=== PATIENT | female | born 1965 | race Caucasian/White ===

== ENCOUNTER 2017-06-02 13:02 | Emergency (ER) | payer OTHER ==
[~2017-06-02 13:02] MED LIST: ASPIRIN 325MG325 MG PO; ASPIRIN CHEWABL81 MG PO; CARBAMAZEPINE200 MG PO; CARTIA XT120 MG PO; CO Q-10100 MG PO; COPAXONE40 MG/1 ML SQ; FUROSEMIDE20 MG PO; HYDROXYZINE HCL25 MG PO; IBUPROFEN800 MG PO; KEFLEX500 MG PO; PERCOCET 10-321 EACH PO; PRAVASTATIN SOD20 MG PO; VITAMIN C 500500 MG PO; WELLBUTRIN 100100 MG PO; ZESTRIL2.5 MG PO; ZOFRAN4 MG PO
[2017-06-02 14:30] LABS: HEMOGLOBIN 12.6 gm/dl (12.3-15.3); RED BLOOD COUNT 4.06 M/UL (4.00-5.10); WHITE BLOOD COUNT 6.6 K/UL (4.5-11.0)
[2017-06-02 14:52] LABS: BUN/CREATININE RATIO 11 (0-10)
== END 2017-06-02 18:44 | disposition home or self-care (01) ==
LOC: ER1 13:02
PROVIDERS: Physician Assistant
DX: R00.2 Palpitations (principal); R00.0 Tachycardia, unspecified; R06.02 Shortness of breath; R53.1 Weakness; I25.2 Old myocardial infarction; I10 Essential (primary) hypertension; E78.5 Hyperlipidemia, unspecified; F17.200 Nicotine dependence, unspecified, uncomplicated; Z79.82 Long term (current) use of aspirin; Z79.899 Other long term (current) drug therapy
CPT/HCPCS: 36415; 71010; 80053; 82550; 82553; 83874; 84443; 84484; 85025; 93005; 99285

== ENCOUNTER → 2020-10-20 | Outpatient (CLI) | payer MEDICARE, OTHER ==
[~2020-10-20] MED LIST changes: +AMITIZA24 MCG PO; +AUBAGIO14 MG PO; +CYMBALTA60 MG PO; +ELIQUIS5 MG PO; +KEFLEX CAP 500500 MG PO; +LOPRESSOR 25 MG25 MG PO; +NITROSTAT0.3 MG SL; +PERCOCET 5/325 T1 EA PO; +PRAVACHOL40 MG PO; +STOOL SOFTENER100 M1 PO; +TEGRETOL 200 M200 MG PO; +TEGRETOL XR100 MG PO; +VITAMIN D250000 UNIT PO
== END ==
LOC: MAMO 12:41
DX: Z12.31 Encounter for screening mammogram for malignant neoplasm of breast (principal); M25.551 Pain in right hip; M25.552 Pain in left hip; M54.5 Low back pain; M47.816 Spondylosis without myelopathy or radiculopathy, lumbar region
CPT/HCPCS: 72100; 73522; 77063; 77067

== ENCOUNTER 2020-10-25 16:53 | Emergency (ER) | payer MEDICARE, OTHER ==
[~2020-10-25 16:53] MED LIST changes: -NITROSTAT0.3 MG SL
[2020-10-25 18:12] LABS: HEMOGLOBIN 13.4 gm/dl (12.3-15.3); RED BLOOD COUNT 4.39 M/UL (4.00-5.10); WHITE BLOOD COUNT 4.5 K/UL (4.5-11.0)
[2020-10-25 18:28] LABS: BUN/CREATININE RATIO 14 (0-10)
[2020-10-25] MEDS ORDERED: NITROSTAT0.3 MG SL (20:15)
== END 2020-10-25 20:50 | disposition home or self-care (01) ==
LOC: ER1 16:53
DX: R68.84 Jaw pain (principal); M25.522 Pain in left elbow; M25.512 Pain in left shoulder; M54.2 Cervicalgia; R00.1 Bradycardia, unspecified; R05 Cough; R06.02 Shortness of breath; I10 Essential (primary) hypertension; I25.2 Old myocardial infarction; I48.91 Unspecified atrial fibrillation; E78.5 Hyperlipidemia, unspecified; G35 Multiple sclerosis; F17.210 Nicotine dependence, cigarettes, uncomplicated; Z87.01 Personal history of pneumonia (recurrent); Z79.82 Long term (current) use of aspirin; Z79.899 Other long term (current) drug therapy; Z79.01 Long term (current) use of anticoagulants
CPT/HCPCS: 36415; 71045; 80053; 82550; 82553; 83874; 84484; 85025; 93005; 99284

== ENCOUNTER → 2021-05-02 | Outpatient (CLI) | payer MEDICARE, OTHER ==
[~2021-05-02] MED LIST changes: +NITROSTAT0.3 MG SL
== END ==
LOC: HEART CORB 08:47
DX: I10 Essential (primary) hypertension (principal); R60.0 Localized edema; I08.1 Rheumatic disorders of both mitral and tricuspid valves
CPT/HCPCS: 93306

== ENCOUNTER → 2021-06-13 | Outpatient (CLI) | payer MEDICARE, OTHER | LOC: KOH-I 12:50 | DX: G35 Multiple sclerosis (principal); G50.0 Trigeminal neuralgia; E55.9 Vitamin D deficiency, unspecified; E53.8 Deficiency of other specified B group vitamins; J32.0 Chronic maxillary sinusitis; Z79.899 Other long term (current) drug therapy | CPT/HCPCS: 70551 ==

== ENCOUNTER 2021-11-12 00:11 | Emergency (ER) | payer MEDICARE, OTHER | END 2021-11-12 00:27 | disposition left against medical advice (07) | LOC: ER1 00:11 | DX: Z53.21 Procedure and treatment not carried out due to patient leaving prior to being seen by health care provider (principal) ==